=== PATIENT | female | born 1960 | race African-American/Black ===

== ENCOUNTER 2019-12-12 05:56 | Emergency (ER) | payer SELFPAY ==
[2019-12-12 06:12] LABS: Hematocrit 41.9 % (30.3-42.9); Hemoglobin 13.6 gm/dl (10.1-14.3); Mean Corpuscular HGB Conc 32 % (30-34); Mean Corpuscular Volume 82 fl (79-97); Platelet Count 339 K/mm3 (140-440); Red Blood Count 5.14 M/mm3 (3.65-5.03); Red Cell Distribution Width 16.6 % (13.2-15.2)
[2019-12-12 06:22] LABS: INR 0.95 (0.87-1.13)
[2019-12-12 06:23] LABS: Partial Thromboplastin Time 23.5 Sec. (24.2-36.6)
[2019-12-12 06:31] LABS: Alanine Aminotransferase 15 units/L (7-56); Albumin 4.1 g/dL (3.9-5); BUN/Creatinine Ratio 17; Blood Urea Nitrogen 10 mg/dL (7-17); Calcium 9.7 mg/dL (8.4-10.2); Hemolysis Index 9
[2019-12-12 06:38] LABS: Free T4 (Free Thyroxine) 1.12 ng/dL (0.76-1.46)
--- NOTE | 2019-12-12 06:44 | Cat Scan Report ---
CT HEAD WITHOUT CONTRAST INDICATION: AMS, h/o fall 3 days ago. TECHNIQUE: All CT scans at this location are performed using CT dose reduction for ALARA by means of automated e xposure control. COMPARISON: None available. FINDINGS: HEMORRHAGE: There is a large parenchymal hematoma and extensive subarachnoid hemorrhage in the right frontoparietal cerebrum. Subarachnoid hemorrhage extends into the basilar cistern. EXTRA-AXIAL SPACES: There is complete sulcal effacement throughout both hemispheres. There is effacem ent of the basilar cistern. VENTRICULAR SYSTEM: There is complete effacement of the right lateral ventricle. The temporal horn of the left lateral ventricle is mildly dilated and could be trapped. Third ventricle is effaced. BRAIN PARENCHYMA: There is extensive vasogenic edema throughout the right frontoparietal region. MIDLINE SHIFT OR HERNIATION: There is approximately 13 mm right to left midline shift. ORBITS: Normal as visualized. SOFT TISSUES OF HEAD: Normal. CALVARIUM: Normal. VISUALIZED PARANASAL SINUSES AND MASTOID AIR CELLS: Clear. ADDITIONAL FINDINGS: None. IMPRESSION: 1. Parenchymal and subarachnoid hemorrhage in the right frontoparietal cerebrum with associated mass effect, as above. Positive critical result COMMUNICATION: Time of Communication: 5:39 AM central Licensed Practitioner Receiving Report: REYNA Mclain. Signer Name: Fran Mendoza MD Signed: 12/12/2019 6:40 AM Workstation Name: [id number]
[2019-12-12] MEDS ORDERED: LIP THERAPY VASELINE TP PRN (06:51)
[2019-12-12] MEDS ORDERED: MINERAL OIL/PETROLATUM, WHITE OPHTH OINT 3.5 GM OU PRN (06:51)
[2019-12-12] MEDS ORDERED: levETIRAcetam 1000 MG/NS 0.75% 1,000 MG/100 ML BAG IV ONE (06:53)
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
--- NOTE | 2019-12-12 06:59 | Cat Scan Report ---
CT cervical spine wo con INDICATION: AMS, h/o fall 3 days ago. TECHNIQUE: All CT scans at this location are performed using the following dose modulation technique: Automated exposure control. COMPARISON: None available. FINDINGS: No acute fracture or subluxation is seen in the cervical spine. There is no prevertebral soft tissue swelling. There are no significant discogenic degenerative changes. Paraspinous musculature is unrema rkable. The included lung apices are clear. IMPRESSION: 1. No acute fracture subluxation in the cervical spine. Signer Name: Fran Mendoza MD Signed: 12/12/2019 6:55 AM Workstation Name: [id number]
[2019-12-12] MEDS ORDERED: PROPOFOL 1,000 MG/100 ML BOTTLE IV SCH (07:00)
[2019-12-12 07:09] LABS: Basophils % (Manual) 0 % (0.0-1.8); Eosinophils % (Manual) 0 % (0.0-4.3); Total Cells Counted 100
[2019-12-12 07:10] LABS: Platelet Estimate Consistent w Auto
--- NOTE | 2019-12-12 07:16 | XRay Report ---
CHEST 1 VIEW INDICATION: ETT placement. COMPARISON: None. FINDINGS: Support devices: Endotracheal tube is in satisfactory position. Esophagogastric tube tip is in the pr oximal stomach with side port in the distal esophagus. Heart: Normal. Lungs/Pleura: No acute pulmonary or pleural findings. IMPRESSION: 1. Endotracheal tube in good position. 2. Esophagogastric tube tip in stomach with side port in the distal esophagus. Signer Name: Fran Mendoza MD Signed: 12/12/2019 7:12 AM Workstation Name: [id number]
[2019-12-12 07:37] LABS: Benzodiazepines Screen,Urine PRESUMPTIVE NEGATIVE; Bilirubin,Urine NEG (Negative); Blood,Urine MOD (Negative); Cocaine Screen,Urine PRESUMPTIVE NEGATIVE; Color,Urine Yellow (Yellow); Methadone Screen,Urine PRESUMPTIVE NEGATIVE; Mucus,Urine FEW /HPF; Opiate Screen,Urine PRESUMPTIVE NEGATIVE; Urobilinogen,Urine < 2.0 mg/dL (<2.0)
[2019-12-12 07:38] VITALS: BP 175/105
[2019-12-12 07:49] LABS: ABG Base Excess -0.8 mmol/L (-2.0-3.0); ABG HCO3 22.8 mmol/L (20.0-26.0); ABG Methemoglobin 0.6 % (0.0-1.5); ABG Oxygen Saturation 99.6 % (95.0-99.0); ABG PCO2 34.6 mm Hg; ABG PH 7.436 pH Units (7.350-7.450)
[2019-12-12 07:54] LABS: ABG PO2 512.3 mm Hg (80.0-90.0)
[2019-12-12 08:14] LABS: Amphetamine Screen,Urine PRESUMPTIVE POSITIVE; Cannabinoid Screen,Urine PRESUMPTIVE POSITIVE
[2019-12-12] MEDS ORDERED: ROCURONIUM 50 MG/5 ML INJ IV ONE (17:00)
[2019-12-12] MEDS ORDERED: LIDOCAINE PF 100 MG/5 ML (CARDIAC SYRINGE) IV ONE (17:00)
[2019-12-12] MEDS ORDERED: ETOMIDATE 20 MG/10 ML INJ IV ONE (17:00)
== END 2019-12-12 08:07 | disposition other institution (70) ==
LOC: ED 05:56
DX: S06.6X9A Traumatic subarachnoid hemorrhage with loss of consciousness of unspecified duration, initial encounter (principal); X58.XXXA Exposure to other specified factors, initial encounter; Y93.89 Activity, other specified; Y92.89 Other specified places as the place of occurrence of the external cause; Y99.8 Other external cause status
CPT/HCPCS: 31500; 36415; 70450; 71045; 72125; 80053; 80307; 81001; 82140; 82550; 82553; 82803; 84439; 84443; 84484; 85007; 85025; 85610; 85730; 86850; 86900; 86901; 93005; 93010; 96374; 99291; J1953; J2001; J2704; 94002